=== PATIENT | female | born 1975 | race Caucasian/White ===

== ENCOUNTER → 2022-07-21 | Outpatient (CLI) | payer OTHER, SELFPAY ==
[2022-07-27 09:38] LABS: HPV APTIMA, High Risk Negative (Negative)
[2022-07-27 09:39] LABS: HPV Reflexed? YES, CHARGE PATIENT
== END | disposition home or self-care (01) ==
PROVIDERS: Visit Provider Nurse Practitioner Family
DX: Z12.4 Encounter for screening for malignant neoplasm of cervix (principal)
CPT/HCPCS: 87624; 88175; G0145

== ENCOUNTER 2024-01-19 16:41 | Emergency (ER) | payer OTHER, SELFPAY ==
[2024-01-19] VITALS (15 sets, daily range): BP systolic 120–182; BP diastolic 59–97; PULSE 68–82; RESP 11–17; TEMP 36.2–36.9; O2SAT 99–100; BMI 28.5
--- NOTE | 2024-01-19 16:56 | EX.ED.DYSGE1 ---
HPI History of Present Illness Chief Complaint: Abn Labs Detail of Chief Complaint: Anemia Informant: patient Onset/Context/Timing Onset: - (Uncertain) Context: Gradual Onset (Presumed) Timing: - (Unknown) Quality: Hemoglobin 5.9 with an MCV of 63 Location: Hematologic Current Severity: Moderate Maximum Severity: Moderate Worsened by: Dyspnea with exertion Relieved by: Rest Associated Symptoms Associated Symptoms: 25 pound weight gain over the past 2 years Narrative Narrative: Patient is a 48-year-old woman on no medication occasionally will take Tylenol. She is not on any NSAIDs. She is on no prescribed medication. She denies night sweats. She denies fever or chills. She denies headache, visual, ocular auditory symptoms. She denies chest pain, she denies shortness of breath at rest, PND or orthopnea. She does admit to shortness of breath with minimal activity. Patient still menstruates. Last month she had 2 menstrual cycles. She states her periods are not regular. She denies dysuria, frequency, urgency or hematuria. She denies abdominal pain, black or maroon-colored stool. She does report constipation. He has not noted any change in the consistency or caliber of her stool over the past several months. There is a remote maternal relative who had breast cancer. Prior similar symptoms: No Recent Illness/Hospitalization: No PFSH PFSH Medical History no medical history no medical history Allergy/AdvReac Type Severity Reaction Status Date / Time No Known Allergies Allergy Verified 01/19/24 16:43 Surgical History (Updated 01/19/24 @ 17:[address] Orestes Rice MD) Status post delivery Social History (Updated 01/19/24 @ 17:[address] Orestes Rice MD) household members: spouse and children Smoking Status: Never smoker ROS ROS ED Constitutional Constitutional ED: Reports other Details: 25 pound weight gain as noted in the HPI narrative ; Denies chills, fever(s), subjective, sweats or weight loss Eyes Eyes: Denies blurry vision or change in vision ENT ENT ED: Denies rhinorrhea or sore throat Cardiovascular Cardiovascular: Denies chest pain, orthopnea, palpitations or paroxysmal nocturnal dyspnea Respiratory/Chest Respiratory/Chest: Reports dyspnea on exertion; Denies cough, dyspnea, orthopnea or paroxysmal nocturnal dyspnea Gastrointestinal Gastrointestinal: Reports constipation and other Details: Patient is never had a colonoscopy. There is no family history of colon cancer. ; Denies abdominal pain, diarrhea, melena, nausea or vomiting Genitourinary Genitourinary ED: Denies dysuria, hematuria or urinary frequency Musculoskeletal Musculoskeletal: Denies arthralgias, back pain, myalgias or neck pain Integumentary Denies rash Endocrine Endocrinology: Denies cold intolerance or heat intolerance Hematologic/Lymphatic Hematologic/Lymphatic: Reports systems reviewed and no addt'l complaints, except as documented Allergic/Immunologic Allergic/Immunologic ED: Denies mouth swelling or tongue swelling EXAM Physical Exam Const Vital Signs: 01/19/24 16:42 01/19/24 16:48 01/19/24 18:46 Temperature 97.2 F L 97.2 F L Temperature Source Temporal Temporal Pulse Rate 82 81 Respiratory Rate 16 15 Respiratory Pattern Normal Blood Pressure 182/71 H 132/74 H Blood Pressure Mean 108 93 Blood Pressure Source Blood Pressure Position Blood Pressure Location Pulse Ox 100 100 Oxygen Delivery Method Room Air Room Air 01/19/24 18:42 01/19/24 18:59 01/19/24 19:01 Temperature 97.2 F L 97.1 F L 97.1 F L Temperature Source Temporal Temporal Temporal Pulse Rate 79 76 76 Respiratory Rate 17 13 13 Respiratory Pattern Blood Pressure 132/74 H 125/84 H 125/84 H Blood Pressure Mean 93 97 97 Blood Pressure Source Monitor Monitor Blood Pressure Position Supine Sitting Blood Pressure Location Right Arm Right Arm Pulse Ox 100 100 100 Oxygen Delivery Method Room Air Room Air Room Air 01/19/24 19:33 01/19/24 20:01 01/19/24 20:05 Temperature 98.2 F 98.2 F Temperature Source Oral Oral Pulse Rate 75 75 Respiratory Rate 13 13 Respiratory Pattern Blood Pressure 129/59 H 127/68 H 127/68 H Blood Pressure Mean 82 87 87 Blood Pressure Source Monitor Monitor Blood Pressure Position Sitting Sitting Blood Pressure Location Right Arm Right Arm Pulse Ox 100 Oxygen Delivery Method Room Air Room Air 01/19/24 21:05 01/19/24 21:08 01/19/24 21:23 Temperature 98.5 F 98.5 F 98.1 F Temperature Source Oral Oral Temporal Pulse Rate 75 81 70 Respiratory Rate 11 L 11 L 16 Respiratory Pattern Blood Pressure 120/97 H 120/97 H 122/70 H Blood Pressure Mean 104 104 87 Blood Pressure Source Monitor Monitor Monitor Blood Pressure Position Semi-Fowlers Sitting Semi-Fowlers Blood Pressure Location Right Arm Right Arm Right Arm Pulse Ox 100 100 100 Oxygen Delivery Method Room Air Room Air Room Air 01/19/24 22:00 Temperature Temperature Source Pulse Rate 69 Respiratory Rate Respiratory Pattern Blood Pressure Blood Pressure Mean Blood Pressure Source Blood Pressure Position Blood Pressure Location Pulse Ox Oxygen Delivery Method Positive well nourished and well developed General Appearance ED: well developed, NAD and pallor; Negative for cyanotic or diaphoretic HEENT Reports moist mucous membranes HEENT Narrative: Head is atraumatic normocephalic. Ears normal. Nares patent. Posterior pharynx is normal. Gingiva is pale. Eyes PERRL and EOMs intact bilaterally General Eye ED: Yes pale conjunctiva; Negative for scleral icterus Neck no lymphadenopathy, supple and no JVD Chest Wall palpation of chest normal Resp normal respiratory effort and clear to auscultation bilaterally Cardio regular rate, regular rhythm, S1 normal heart sound, S2 normal heart sound and no murmurs GI normal to inspection, nondistended, normoactive bowel sounds, non-tender, non-distended and no masses; Negative for hepatosplenomegaly GI Narrative: Rectal exam revealed no fissures, fistulas or hemorrhoids. There was no stenosis or palpable mass. Stool is brown. Auscultation: hypoactive bowel sounds Palpation: soft Back/Spine no CVA tenderness Extremity normal to inspection Extremity Narrative: There is erythema to the creases of the palm. General Extremety ED: Negative for edema or tenderness General Extremity: Negative for edema Neuro oriented x3, CN's II-XII intact bilaterally and no sensory deficits noted Sensorium / Orientation: alert Psych Mood & Affect: anxious Skin no rashes or lesions noted, no wounds and skin turgor normal General Skin Exam: pallor; Negative for jaundice MDM MDM MDM Narrative Medical decision making narrative: Patient has symptomatic anemia. Patient had blood work done earlier today. Comprehensive metabolic panel was normal. CBC reveals microcytic anemia with a hemoglobin of 5.9 and MCV of 63. This is consistent with iron deficiency. Stool sent for occult blood. This could be related to her abnormal vaginal bleeding. She is not postmenopausal. There are minimal records available. There is an outpatient record from 2021 for cancer screening. Patient was typed and crossed for 2 units of blood. Since her lab work is unremarkable and this is a chronic issue plan is to discharge after transfusion and appropriate referral to [facility] and or GI. Patient has no neutropenia. She also has known thrombocytopenia required transfusion after her last delivery. She had a workup for von Willebrand's disease which was negative in [place] 16 years ago. 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 Lab results narrative: CBC that was performed earlier today reveals pancytopenia. White count is 3.1. Platelet count is slightly low at 148,000. Hemoglobin is 5.9. MCV is 63.2. Stool for occult blood was negative. Labs: Laboratory Results - last 24 hr 01/19/24 01/19/24 17:01 17:05 Serum , Qual NEGATIVE Blood Type A POSITIVE Antibody Screen NEGATIVE Crossmatch See Detail Treatment and Re-Evaluation :: Patient was reassessed at 1940. First unit of blood is infusing. She had no reaction. She is doing well. Patient was reassessed at 2235. She is doing well. No reaction to the blood transfusion. She had many questions as well as her . They were all answered to their satisfaction. Plan is to discharge once the second unit of blood has infused. Discharge Plan Triage Chief Complaint: Abn Labs ED Provider: Orestes Rice Dx/Rx/DC Orders Clinical Impression: Transfusion of blood during current hospitalisation, Pancytopenia, Signs and symptoms of anemia, Microcytic anemia, Elevated blood-pressure reading, without diagnosis of hypertension, Symptomatic anemia Instructions: ED Anemia, Iron-Deficiency (Adult), ED Hypertension, To Be Confirmed Primary Care Provider: Liam Calvin Referrals: Liam Calvin MD [Primary Care Provider] - 3-5 Days Activity Restrictions/Additional Instructions: 1. You will need to take 1 iron tablet 3 times a day 2. The iron tablet may make you more constipated. Recommend Metamucil or MiraLAX twice a day. 3. You will need to have your blood pressure monitored. 4. You will need to see Dr. Barnett to evaluate for cause of your low iron. This may be due to the fact that you do not eat much red meat or may be due to your abnormal menses since there is no blood noted in your stool. Disposition Disposition: Home, Self Care
[2024-01-19 17:34] LABS: Internal QC Validated? YES +Cl - CLEAR BKGD; Pregnancy, Serum, hCG Quali. NEGATIVE Negative
== END 2024-01-19 23:36 | disposition home or self-care (01) ==
PROVIDERS: Emergency Provider Emergency Medicine; PCP Family Medicine; Visit Provider Emergency Medicine
DX: D61.818 Other pancytopenia (principal); D50.9 Iron deficiency anemia, unspecified; R03.0 Elevated blood-pressure reading, without diagnosis of hypertension
CPT/HCPCS: 36430; 82274; 84703; 86850; 86900; 86901; 86920; 86922; 99282; J7050; P9016; A4216

== ENCOUNTER → 2024-01-19 | Outpatient (CLI) | payer OTHER, SELFPAY ==
[2024-01-19 10:56] LABS: Mean Corp Hgb Conc 25.7 g/dL (32-36); Mean Corpuscular Hgb 16.3 pg (27.0-32.0); Mean Corpuscular Volume 63.4 fL (81-99); POSITIVE COUNT YES; Platelet Count 148 K/mm3 (150-450); RBC Distribution Width CV 18.7 % (11.6-14.6); RBC Distribution Width SD 41.8 fl (35.1-43.9); Red Blood Count 3.63 M/mm3 (4.2-5.4); White Blood Count 3.1 K/mm3 (4.4-11.0)
[2024-01-19 11:07] LABS: Hemoglobin 5.9 g/dL (12.0-15.0)
[2024-01-19 11:08] LABS: Scan Indicated on CBC? Y/N YES- FLAGS NOTED
[2024-01-19 11:11] LABS: ALB/GLOB Ratio 0.9 RATIO (0.9-2.4); AST(SGOT) 14 U/L (15-37); Alanine Aminotransfer ALT/SGPT 14 U/L (13-56); Albumin, Serum 3.3 g/dL (3.2-5.0); Alkaline Phosphatase 40 U/L (45-117); Anion Gap 8 (5-15); BUN 11 mg/dL (7-18); BUN/Creat Ratio 18.5 RATIO (10-20); Calcium,Total 8.5 mg/dL (8.5-10.1); Chloride 107 mmol/L (98-107); Cholesterol 184 mg/dL (200); EST Glomerular Filtration Rate 114 mL/min (>60); Est Glom Filt Rate - Afr Amer 138 mL/min (>60); Globulin 3.8 g/dL (2.2-4.2); Glucose 94 mg/dL (74-106); High Density Lipoprotein 66 mg/dL; Potassium 3.8 mmol/L (3.5-5.1); Protein, Total 7.1 g/dL (6.4-8.2); Sodium Level 139 mmol/L (136-145); T4 Free Direct 0.99 ng/dL (0.76-1.46); Thyroid Stim Hormone (TSH) 2.21 uIU/mL (0.358-3.74); Triglycerides 75 mg/dL; Very Low Density Lipoprotein 15 mg/dL (5-40)
[2024-01-20 16:24] LABS: Pathologist Review Reviewed
== END | disposition home or self-care (01) ==
LOC: MFPLAB 08:24
PROVIDERS: Nurse Practitioner Family; Visit Provider Family Medicine
DX: Z13.1 Encounter for screening for diabetes mellitus (principal); R53.83 Other fatigue; Z13.220 Encounter for screening for lipoid disorders; D64.9 Anemia, unspecified
CPT/HCPCS: 36415; 80053; 80061; 82306; 84439; 84443; 85027

== ENCOUNTER → 2024-04-12 | Outpatient (CLI) | payer OTHER, SELFPAY ==
[2024-04-12 10:04] LABS: Absolute Lymphocyte Count 0.77 X10^3/uL (0.83-4.51); Absolute Neutrophil Count 1.9 X10^3/uL (2.0-7.7); Basophil# 0.02 X10^3/uL; Basophil% 0.6 % (0-1); Eosinophil# 0.06 X10^3/uL; Eosinophils% 1.9 % (0-5); Hematocrit 28.2 % (37-47); Hemoglobin 8.3 g/dL (12.0-15.0); Lymphocyte # 0.77 X10^3/ul (0.83-4.51); Lymphocyte % 24.4 % (19-41); Mean Corp Hgb Conc 29.4 g/dL (32-36); Mean Corpuscular Hgb 21.4 pg (27.0-32.0); Mean Corpuscular Volume 72.7 fL (81-99); Monocyte# 0.43 X10^3/uL; Monocyte% 13.6 % (0-10); NRBC Flagged by Analyzer 0 % (0-5); Neutrophil # 1.88 X10^3/uL (2.7-7.7); Neutrophil % 59.5 % (47-70); Platelet Count 150 K/mm3 (150-450); RBC Distribution Width CV 17.7 % (11.6-14.6); RBC Distribution Width SD 46.2 fl (35.1-43.9); Red Blood Count 3.88 M/mm3 (4.2-5.4); White Blood Count 3.2 K/mm3 (4.4-11.0)
[2024-04-12 11:01] LABS: Ferritin 2 ng/mL (8-252); Iron 13 ug/dL (50-170); Iron Binding Capacity,Total 471 ug/dL (250-450)
== END | disposition home or self-care (01) ==
LOC: MFPLAB 08:49
PROVIDERS: Nurse Practitioner Family; PCP Family Medicine; Visit Provider Family Medicine
DX: D64.9 Anemia, unspecified (principal)
CPT/HCPCS: 36415; 82728; 83540; 83550; 85025

== ENCOUNTER → 2024-04-25 | Outpatient (CLI) | payer OTHER, SELFPAY ==
--- NOTE | 2024-04-25 08:16 | BI_ITS ---
MAMMOGRAPHY - BILATERAL SCREENING REASON FOR EXAM: Female, 48 years old. Routine annual screening examination. PERTINENT HISTORY: Non-contributory. TECHNIQUE: Digital bilateral breast hermes (3D mammographic acquisition) in the CC and MLO projections. 2-D mediolateral oblique (MLO) and craniocaudad (CC) views of both breasts were obtained. CAD: Full Field Digital Mammography with Computer Added Detection was performed. COMPARISON: No comparison mammograms available at this time. If any prior films become available, an addendum to this report can be generated. FINDINGS: Breast Composition: The breasts are extremely dense, which lowers the sensitivity of mammography. There are no dominant masses or suspicious calcifications. Benign appearing bilateral axillary lymph nodes. No other significant abnormalities are identified. BI/SCRN MAMM (CAD)W/HERMES BILAT IMPRESSION: Negative screening mammogram. Yearly followup mammogram recommended. (A) ASSESSMENT CATEGORY: BIRADS Category 2: Benign. A letter regarding these results will be sent to the patient by the facility within 30 days. Approximately 10% of breast cancers are not detected by mammography. A normal mammogram should not delay biopsy of a clinically suspicious abnormality. [id number] Electronically Signed: Oswaldo Riggs MD at 14:34 EDT ,
== END | disposition home or self-care (01) ==
LOC: OPBI 08:15
PROVIDERS: PCP Family Medicine; Referring Provider Nurse Practitioner Family; Visit Provider Nurse Practitioner Family
DX: Z12.31 Encounter for screening mammogram for malignant neoplasm of breast (principal)
CPT/HCPCS: 77063; 77067

== ENCOUNTER → 2024-12-28 | Outpatient (CLI) | payer OTHER, SELFPAY ==
[2025-01-02 15:07] LABS: HPV APTIMA, High Risk Negative (Negative)
== END | disposition home or self-care (01) ==
PROVIDERS: PCP Family Medicine; Referring Provider Advanced Practice Midwife; Visit Provider Advanced Practice Midwife
DX: Z12.4 Encounter for screening for malignant neoplasm of cervix (principal)
CPT/HCPCS: 87624; 88175; G0145